=== PATIENT | female | born 1985 | race Two or more races ===

== ENCOUNTER 2019-03-13 17:07 | Emergency (ER) | payer SELFPAY ==
[~2019-03-13] VITALS: Ht 157.5 cm; Wt 64.0 kg
[2019-03-13 17:19] VITALS: BP 153/99
[2019-03-13] MEDS ORDERED: BACITRACIN ZINC OINT UDPKT TOP ONE (18:30)
== END 2019-03-13 19:01 | disposition home or self-care (01) ==
LOC: ER 17:07
DX: S40.812A Abrasion of left upper arm, initial encounter (principal); S40.811A Abrasion of right upper arm, initial encounter; R03.0 Elevated blood-pressure reading, without diagnosis of hypertension; F17.210 Nicotine dependence, cigarettes, uncomplicated; F32.9 Major depressive disorder, single episode, unspecified; Y08.89XA Assault by other specified means, initial encounter; Y93.89 Activity, other specified; Y92.89 Other specified places as the place of occurrence of the external cause
CPT/HCPCS: 99283

== ENCOUNTER 2019-08-26 03:02 | Emergency (ER) | payer OTHER, MEDICAID ==
[~2019-08-26] VITALS: Ht 157.5 cm; Wt 68.0 kg
[2019-08-26 06:03] LABS: BASOPHILS % 0.8 % (0.0-2.0); EOSINOPHILS % 3.8 % (0.0-5.0); HEMATOCRIT. 38.1 % (36.0-48.0); HEMOGLOBIN. 12.9 g/dL (12.0-16.0); LYMPHOCYTES % 20.9 % (20.0-50.0); MEAN CORPUSCULAR HEMOGLOBIN 31.1 pg (28.0-32.0); MEAN CORPUSCULAR VOLUME 92.2 fL (81.0-99.0); MEAN PLATELET VOLUME 7.4 fl (7.4-10.4); MONOCYTES % 7.9 % (2.0-8.0); NEUTROPHILS % 66.6 % (40.0-76.0); PLATELET 261 x1000/uL (130-400); RED BLOOD CELL COUNT 4.14 mill/uL (4.2-5.4); RED CELL DISTRIBUTION WIDTH 13.7 % (11.6-14.6)
[2019-08-26 06:08] LABS: CHLORIDE 103 mEq/L (98-107)
[2019-08-26 06:19] LABS: B-HCG QUANTITATIVE 5 mIU/mL (<3)
[2019-08-26] MEDS ORDERED: ACETAMINOPHEN 325MG TABLET PO ONE (06:45)
[2019-08-26] MEDS ORDERED: POTASSIUM CHLORIDE 20MEQ TABLET SR PO ONE (07:45)
[2019-08-26 08:05] LABS: CLARITY URINE CLEAR (CLEAR); COLOR URINE YELLOW (YELLOW); KETONES URINE NEGATIVE (NEGATIVE); LEUKOCYTE ESTERASE URINE NEGATIVE (NEGATIVE); NITRITE URINE NEGATIVE (NEGATIVE); OCCULT BLOOD URINE NEGATIVE (NEGATIVE); PROTEIN URINE NEGATIVE (NEGATIVE); SPECIFIC GRAVITY URINE 1.019 (1.005-1.030); UROBILINOGEN URINE 0.2 E.U./dL (0.2-1.0)
[2019-08-26 08:28] VITALS: BP 143/99
== END 2019-08-26 08:29 | disposition home or self-care (01) ==
LOC: ER 03:02
DX: R10.9 Unspecified abdominal pain (principal); O03.9 Complete or unspecified spontaneous abortion without complication; O03.83 Metabolic disorder following complete or unspecified spontaneous abortion; E87.6 Hypokalemia; O46.91 Antepartum hemorrhage, unspecified, first trimester; O99.341 Other mental disorders complicating pregnancy, first trimester; F41.9 Anxiety disorder, unspecified; F32.9 Major depressive disorder, single episode, unspecified; Z3A.09 9 weeks gestation of pregnancy
CPT/HCPCS: 36415; 76830; 76856; 80053; 81003; 84702; 85025; 86850; 86900; 86901; 99284; Z7610

== ENCOUNTER 2020-04-06 02:06 | Emergency (ER) | payer MEDICAID ==
[~2020-04-06] VITALS: Ht 157.5 cm; Wt 68.0 kg
[2020-04-06 02:21] VITALS: BP 128/94
== END 2020-04-06 03:06 | disposition left against medical advice (07) ==
LOC: ER 02:06
DX: R10.9 Unspecified abdominal pain (principal); Z53.21 Procedure and treatment not carried out due to patient leaving prior to being seen by health care provider

== ENCOUNTER 2020-04-08 00:12 | Emergency (ER) | payer MEDICAID | END 2020-04-08 00:44 | disposition left against medical advice (07) | LOC: ER 00:12 | DX: Z53.21 Procedure and treatment not carried out due to patient leaving prior to being seen by health care provider (principal) ==